=== PATIENT | male | born 1950 | race Caucasian/White ===

== ENCOUNTER → 2018-07-03 | Outpatient (CLI) | payer MEDICARE ==
--- NOTE | 2018-07-03 13:00 | ECHOS ---
STRESS ECHOCARDIOGRAM DATE OF SERVICE: 07/03/2018 INDICATIONS: Chest pain. MEDICATIONS: BASELINE HEART RATE: 64 BASELINE BLOOD PRESSURE: 148/67 MAXIMUM HEART RATE: 148 MAXIMUM BLOOD PRESSURE: 184/111 85% MPHR: 129 100% MPHR: 152 METS: 8.1 MAXIMUM STAGE REACHED: III TOTAL EXERCISE TIME: 6 minutes 30 seconds CLINICAL INFORMATION: Baseline rhythm is a sinus mechanism, rate of 64, low voltage in the limb leads. Baseline blood pressure 148/67 mmHg. Patient exercised on Pernell protocol for 6 minutes 30 seconds reaching a peak rate 148 beats per minute which is equal to 97% maximum predicted heart rate. Peak blood pressure 184/111 mmHg. Test was terminated secondary to fatigue. There was no chest pain. Electrocardiograph monitoring revealed rare PVCs. Electrocardiograph monitoring revealed no evidence of diagnostic ischemic ST deviation. Baseline echocardiogram revealed normal wall thickening and motion. At peak exercise, there was normal wall motion augmentation with no hypokinesis or dyskinesis. CONCLUSION: 1. Average exercise tolerance with normal EKG response to exercise. 2. Normal stress echocardiogram with no evidence of stress induced ischemia. MMODL / IJN: [id number] / MTDD
== END | disposition home or self-care (01) ==
LOC: RADNMMAIN 09:30
PROVIDERS: ATTEND Family Medicine
DX: R07.9 Chest pain, unspecified (principal)
CPT/HCPCS: 93351

== ENCOUNTER → 2019-06-07 | Outpatient (CLI) | payer MEDICARE ==
--- NOTE | 2019-06-07 11:51 | US ---
EXAMINATION TYPE: US prostate transrectal DATE OF EXAM: 06/07/2019 COMPARISON: NONE CLINICAL HISTORY: R97.20 elevated psa. This examination was performed using the transrectal probe. EXAM MEASUREMENTS: Gland Size: 6.8 x 4.2 x 5.6 Volume: 82.92 Predicted PSA: 10.0 Actual PSA (if available):2.7 Enlarged and heterogenous gland. No distinct nodule visualized within peripheral zone at this time IMPRESSION: Heterogenous prostate gland related to benign prostatic hyperplasia in the enlarged pros barnett gland. No distinct nodule in the peripheral zone on ultrasound. However given the elevated PSA s creening prostate MRI could be performed. Predicted PSA = volume x 0.12 ng/ml Calculated Volume = 0.5236 x L x W x H
== END | disposition home or self-care (01) ==
LOC: RADUSWWP 09:46
PROVIDERS: ATTEND Family Medicine
DX: N40.0 Benign prostatic hyperplasia without lower urinary tract symptoms (principal)
CPT/HCPCS: 76872

== ENCOUNTER → 2019-07-03 | Outpatient (CLI) | payer MEDICARE | END | disposition home or self-care (01) | LOC: RADMRIMAIN 06:56 | PROVIDERS: ATTEND Family Medicine | DX: Z53.9 Procedure and treatment not carried out, unspecified reason (principal) ==

== ENCOUNTER → 2019-11-19 | Outpatient (CLI) | payer MEDICARE ==
--- NOTE | 2019-11-19 17:48 | MR ---
EXAMINATION TYPE: MR Prostate wo/w con DATE OF EXAM: 11/19/2019 COMPARISON: Transrectal prostate ultrasound 06/07/2019 IMAGE QUALITY: Good. INDICATION: Abnormal tumor markers, prostate specific antigen abnormal PSA: 0.94 ng/ml Recent Biopsy and Date: None Pathology Report (If Applicable): Not applicable TECHNIQUE: Examination was performed using a 3T MRI without an endorectal coil. Multiparametric imaging was perf ormed with T2 multiplanar sequences, axial diffusion weighted imaging and dynamic contrast enhanced i maging, utilizing 9 mL intravenous Gadavist gadolinium contrast. FINDINGS: There is no clinically significant cancer identified. No focal lesion of the peripheral zone or trans itional zone. Peripheral zone is normal. Transitional zone demonstrates benign prostatic hyperplasia (BPH) changes. PROSTATE VOLUME: 4.2 x 5.7 x 5.0 cm AP, transverse, and craniocaudal. Vol= 62.3 cc PSA DENSITY: 0.02 ng/ml/cc Seminal vesicles: Normal Abnormal lymph nodes: None Bone metastases in inferior pelvis: None IMPRESSION: 1. No MRI evidence of clinically significant prostate carcinoma. 2. BPH. Assessment Categories: 1 Very low (clinically significant cancer is highly unlikely to be present) 2 Low (clinically significant cancer is unlikely to be present) 3 Intermediate (the presence of clinically significant cancer is equivocal) 4 High (clinically significant cancer is likely to be present) 5 Very high (clinically significant cancer is highly likely to be present) Locations: PZ = peripheral zone; TZ = transition zone CZ=central zone; AFS = anterior fibromuscular stroma a=anterior half (i.e. PZa=anterior half of peripheral zone); pm= posterior medial (i.e PZpm) pl = postero-lateral (i.e. PZpl); p = posterior half (i.e. TZp) ; a = anterior half (i.e TZa or P Za) Other: N=no or no; E= equivocal; Y=yes EPE = extraprostatic extension NVB = neurovascular bundle NA = not applicable/not available
== END | disposition home or self-care (01) ==
LOC: RADMRIMAIN 08:01
PROVIDERS: ATTEND Family Medicine
DX: N40.0 Benign prostatic hyperplasia without lower urinary tract symptoms (principal)
CPT/HCPCS: 72197; A9585

== ENCOUNTER → 2021-03-23 | Outpatient (CLI) | payer MEDICARE ==
--- NOTE | 2021-03-23 09:45 | US ---
EXAMINATION TYPE: US abdomen complete DATE OF EXAM: 03/23/2021 COMPARISON: NONE CLINICAL HISTORY: R10.9 Abdominal pain. EXAM MEASUREMENTS: Liver Length: 15.2 cm Gallbladder Wall: 0.2 cm CBD: 0.4 cm Spleen: 12.2 cm Right Kidney: 11.4x5.2x5.4 cm Left Kidney: 12.1x4.7x5.5 cm Pancreas: Tail obscured by overlying bowel gas Liver: Multiple small liver cysts throughout entire liver largest = 0.6x0.8x0.9cm Gallbladder: wnl Evidence for sonographic Ko's sign: No CBD: wnl Spleen: wnl Right Kidney: Inf cyst 2.8x2.6x2.7cm Left Kidney: wnl Upper IVC: wnl Abd Aorta: wnl The intrahepatic portion of the IVC and proximal abdominal aorta are within normal limits. There is no evidence of cholelithiasis. Common bile duct is unremarkable. The visualized portions of the james creas are homogenous. The spleen is unremarkable. Kidneys are symmetric and free of hydronephrosis. No solid renal lesions are seen. IMPRESSION: Multiple hepatic cysts. Otherwise unremarkable study.
== END | disposition home or self-care (01) ==
LOC: RADUSWWP 08:09
PROVIDERS: ATTEND Family Medicine
DX: K76.89 Other specified diseases of liver (principal)
CPT/HCPCS: 76700

== ENCOUNTER → 2021-04-17 | Outpatient (CLI) | payer MEDICARE ==
--- NOTE | 2021-04-17 09:54 | CT ---
EXAMINATION TYPE: CT abdomen wo con DATE OF EXAM: 04/17/2021 COMPARISON: Ultrasound 03/23/2021 HISTORY: 70-year-old male R10.9, abdominal pain, RUQ pain TECHNIQUE: Contiguous axial scanning of the abdomen without IV contrast. Coronal and sagittal reconst ructions performed. CT DLP: 374.3 mGycm Automated exposure control for dose reduction was used. FINDINGS: Heart normal size without pericardial effusion. Some minimal strandy atelectasis in the periphery of the lower lungs. No pleural effusion. 7 mm hypodensity in segment IVb left liver lobe. 1 cm hypodensity segment 4A. Additional similar smal l hypodensities are present near the left hepatic dome. Approximately 8 lesions are present in total. These are indeterminate but multiple small liver cysts were noted on the recent abdominal ultrasound . Gallbladder, adrenal glands, left kidney, spleen, and pancreas within normal limits. There is a round 3.1 cm hypodense lesion at the lower pole right kidney that shows slightly intermedi ate attenuation of 16 Hounsfield units. Given that a benign cyst is seen on the recent ultrasound, mi ldly complicated cyst is suggested. There is central lexi mesentery and regional numerous nonenlarged and borderline enlarged lymph node s measuring up to 9 mm. No retroperitoneal lymphadenopathy. Circumaortic left renal vein. No dilated small bowel, free fluid, or free air. Appendix not clearly identified. No secondary findings of acute appendicitis in the right lower quadr ant. Mild stool burden. Mild proximal sigmoid diverticulosis partially visualized. Pelvis is not imaged. Bones: Facet arthropathy lower lumbar spine. Mild multilevel degenerative disc disease. Mild degenera tive change left SI joint. IMPRESSION: 1. CENTRAL LEXI MESENTERY WITH ASSOCIATED NUMEROUS NONENLARGED AND BORDERLINE TO MILDLY ENLARGED LYM PH NODES MEASURING UP TO 9 MM. 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 3-6 MONTH FOLLOW-UP CT RECOMMENDED TO ENSURE STABILITY/RESOLUTION AND EXCLUDE A MORE AGGRESSIVE ETIOLOGY SUCH EARLY L YMPHOMA. 2. SCATTERED SMALL LIVER CYSTS AND A MILDLY COMPLICATED 3.1 CM RIGHT LOWER POLE RENAL CYST (WHEN ELBA OBORATED WITH PATIENT'S 03/23/2021 ULTRASOUND).
== END | disposition home or self-care (01) ==
LOC: RADCTMAIN 08:14
PROVIDERS: ATTEND Family Medicine
DX: K76.89 Other specified diseases of liver (principal); N28.1 Cyst of kidney, acquired; R59.9 Enlarged lymph nodes, unspecified
CPT/HCPCS: 74150

== ENCOUNTER → 2021-06-17 | Outpatient (CLI) | payer MEDICARE | END | disposition home or self-care (01) | LOC: LABWHC1 07:03 | PROVIDERS: ATTEND Urology | DX: R97.20 Elevated prostate specific antigen [PSA] (principal) | CPT/HCPCS: 36415; 84153 ==

== ENCOUNTER → 2021-06-29 | Outpatient (CLI) | payer MEDICARE ==
--- NOTE | 2021-06-29 09:42 | CT ---
EXAMINATION TYPE: CT abdomen pelvis wo con DATE OF EXAM: 06/29/2021 COMPARISON: CT dated 04/17/2021 HISTORY: RT sided abdominal pain CT DLP: 685.30 mGycm Automated exposure control for dose reduction was used. TECHNIQUE: Helical acquisition of images was performed from the lung bases through the pelvis. FINDINGS: LUNG BASES: No significant abnormality is appreciated. LIVER/GB: Stable scattered hepatic hypodensities likely representing hepatic cysts, also appreciated in February 2021 ultrasound. Unremarkable gallbladder. PANCREAS: No significant abnormality is seen. SPLEEN: No significant abnormality is seen. ADRENALS: No significant abnormality is seen. KIDNEYS: Right lower pole renal cyst measuring up to 3.2 cm with very tiny calcifications at the barbara in, not grossly changed compared to the previous CT scan yet suboptimally assessed by this nonenhance d CT scan. No definite renal lesion identified. No hydronephrosis. 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 No progressive or patholog ically enlarged lymph nodes in the abdomen or the pelvis. No sizable ascites. REPRODUCTIVE ORGANS: Enlarged prostate, please correlate with PSA level. Unremarkable seminal vesicle s. URINARY BLADDER: Grossly unremarkable OSSEOUS STRUCTURES: No aggressive bone lesion. BOWEL: Unremarkable nondistended stomach, duodenum and small bowel. Scattered uncomplicated colonic diverticulosis mainly seen in the sigmoid colon. OTHER: Scattered arterial atherosclerotic calcifications. IMPRESSION: 1. Stable hepatic hypodensities likely representing hepatic cysts. 2. Incompletely characterized right lower pole renal cyst by this nonenhanced CT scan with tiny carroll nal calcification, yet stable compared to the previous CT scan. Recommend correlation with ultrasound results. 3. Stable signs suggestive of mesenteric panniculitis with stable prominent mesenteric lymph nodes. N o progressive lymphadenopathy in the abdomen or the pelvis. Other incidental findings as described ab ove.
== END | disposition home or self-care (01) ==
LOC: RADCTMAIN 07:16
PROVIDERS: ATTEND Family Medicine
DX: K76.89 Other specified diseases of liver (principal); N28.1 Cyst of kidney, acquired
CPT/HCPCS: 74176

== ENCOUNTER → 2023-09-01 | Outpatient (CLI) | payer MEDICARE | END | disposition home or self-care (01) | LOC: LABWHC1 10:36 | PROVIDERS: ATTEND Urology | DX: R97.20 Elevated prostate specific antigen [PSA] (principal) | CPT/HCPCS: 36415; 84153 ==

== ENCOUNTER → 2024-05-15 | Outpatient (CLI) | payer MEDICARE | END | disposition home or self-care (01) | LOC: LABWHC1 09:47 | PROVIDERS: ATTEND Urology | DX: R97.20 Elevated prostate specific antigen [PSA] (principal) | CPT/HCPCS: 36415; 84153 ==

== ENCOUNTER → 2024-07-27 | Outpatient (CLI) | payer MEDICARE ==
--- NOTE | 2024-07-27 10:19 | MR ---
EXAMINATION TYPE: MR Prostate wo/w con DATE OF EXAM: 07/27/2024 COMPARISON: Prior prostate MRI November 19, 2019. INDICATION: Enlarged Prostate PSA: 6.92 ng/ml on May 15, 2024 Recent Biopsy and Date: None Pathology Report (If Applicable): n/a TECHNIQUE: Examination was performed using a 3T MRI without an endorectal coil. Multiparametric imaging was perf ormed with T2 mutliplanar sequences, axial diffusion weighted imaging and dynamic contrast enhanced i maging, utilizing 8ml mL intravenous Gadobutrol gadolinium contrast. FINDINGS: PROSTATE VOLUME: 5.4 cm SI x 4.3 cm AP x 6.0 cm LR Vol= 73.0 cc PSA DENSITY: 0.09 ng/ml/cc Enlarged prostate consistent with BPH is redemonstrated. No suspicious marked areas of diminished sig nal on ADC mapping in the peripheral zone. No areas of significant increased signal on diffusion-weig hted imaging. There are bilateral nodules in the transitional zone. No suspicious T2 hypointense area s. IMPRESSION: Enlarged prostate consistent with BPH is redemonstrated. A focus of clinically significant cancer is not identified. No significant change from prior prostate MRI. Highest Assessment Category: 2 MRI Stage: T0 N0 M0 based on review of pelvic images. False negative rates for MRI range from 5-20% depending on risk profile. Assessment Categories: 1 ? Very low (clinically significant cancer is highly unlikely to be present) 2 ? Low (clinically significant cancer is unlikely to be present) 3 ? Intermediate (the presence of clinically significant cancer is equivocal) 4 ? High (clinically significant cancer is likely to be present) 5 ? Very high (clinically significant cancer is highly likely to be present) [facility], , 07/27/2024 10:16 AM
== END | disposition home or self-care (01) ==
LOC: RADMRIMAIN 08:20
PROVIDERS: ATTEND Urology
DX: N40.0 Benign prostatic hyperplasia without lower urinary tract symptoms (principal); R97.20 Elevated prostate specific antigen [PSA]; E11.9 Type 2 diabetes mellitus without complications
CPT/HCPCS: 72197; A9585

== ENCOUNTER → 2024-11-14 | Outpatient (CLI) | payer MEDICARE | END | disposition home or self-care (01) | LOC: LABWHC1 09:10 | PROVIDERS: ATTEND Urology | DX: R97.20 Elevated prostate specific antigen [PSA] (principal) | CPT/HCPCS: 36415; 84153 ==